=== PATIENT | male | born 1955 | race Two or more races ===

== ENCOUNTER 2018-01-23 10:34 | Day surgery (SDC) | payer OTHER | END 2018-01-23 15:15 | disposition home or self-care (01) | LOC: AMB-ENDOS 10:34 | DX: C18.7 Malignant neoplasm of sigmoid colon (principal); D12.0 Benign neoplasm of cecum; Z86.010 Personal history of colon polyps ==

== ENCOUNTER → 2020-03-24 | Day surgery (SDC) | payer OTHER | END | disposition home or self-care (01) | LOC: AMB-ENDOS 06:05 | DX: D12.2 Benign neoplasm of ascending colon (principal); D12.3 Benign neoplasm of transverse colon; K64.1 Second degree hemorrhoids ==